=== PATIENT | female | born 1955 | race Caucasian/White ===

== ENCOUNTER 2017-08-23 16:19 | Observation (INO) ==
[2017-08-23] MEDS ORDERED: Aspirin 81 MG TAB.CHEW PO ONE (16:56)
--- NOTE | 2017-08-23 17:00 | Emergency Department Note ---
Disposition Clinical Impression: Chest pain Qualifiers: Chest pain type: unspecified Qualified Code(s): R07.9 - Chest pain, unspecified Disposition: Admitted As Inpatient Condition: Fair Forms: ED Satisfaction Letter, Work/School Release Time of Disposition: 18:22 Chest Pain HPI - General Chief Complaint: ED General Medical Stated Complaint: Left side pain and pressure Source: patient Limitations: no limitations Vital Signs Reviewed: Yes Nursing Notes Reviewed: Yes - History of Present Illness HPI Narrative: 61-year-old female past medical history of hypertension, myocardial infarction in her mother at the age of 63 presented to the emergency department with left- sided pain radiating up into the left side of her neck that is associated with shortness of breath. Patient denies ever having history of migraine infarction. Patient denies any nausea, diaphoresis. Patient denies any hemoptysis, unilateral leg swelling, recent travel, history of DVT, use of estrogen. Patient denies any cough, fever. Patient denies dysuria, hematuria. Severity scale (1-10): 8 - Related Data Allergies Allergy/AdvReac Type Severity Reaction Status Date / Time Penicillins [PCN] Allergy See Verified 08/23/17 16:26 Comments Sulfa (Sulfonamide Allergy See Verified 08/23/17 16:26 Antibiotics) Comments All systems ED: reviewed and negative except as stated. Review of Systems: As Per HPI Constitutional: Denies: fever Cardiovascular: Reports: chest pain Respiratory: Reports: dyspnea. Denies: cough Gastrointestinal: Denies: abdominal pain, nausea, vomiting Chest Pain PMH - Past Medical History Medical history: Reports: hypertension Psychiatric history: Reports: anxiety, depression - Social History Smoking Status: 2nd Hand Smoke Exposure Alcohol use: Reports: occasionally Drug use: Reports: none Physical Exam General: 7-year-old female who appears to be teary-eyed Head: autraumatic, EOMI, no conjuncitval pallor, no scleral icterus, Mouth: oral mucous membranes moist Neck: neck soft, trachea midline Chest:: Equal chest wall rise Lungs: Normal lungs sounds bilaterally, no wheezes, no respiratory distress Heart: normal heart sounds, normal rate and rhythm, Back: No CVA tenderness Abdomen: soft, non-tender, no rigidity, no guarding, no rebdound tenderness Lower Extremities: no pedal edema, calves non-tender Integumentary: Skin warm, dry, and intact Neuro: Alert Psych: normal affect, normal mood - General Limitations: no limitations General appearance: alert, in no apparent distress Course Vital Signs Temperature 98.2 F 08/23/17 16:21 Pulse Rate 102 08/23/17 16:21 Respiratory Rate 18 08/23/17 16:21 Blood Pressure 140/92 08/23/17 16:21 O2 Sat by Pulse Oximetry 96 08/23/17 16:21 Temperature 98.2 F 08/23/17 16:21 Pulse Rate 102 08/23/17 16:21 Respiratory Rate 18 08/23/17 16:21 Blood Pressure 140/92 08/23/17 16:21 O2 Sat by Pulse Oximetry 96 08/23/17 16:21 Oxygen Delivery Oxygen Delivery Room Air Chest Pain - MDM Narrative Medical decision making narrative: Vital Signs Temperature 98.2 F 08/23/17 16:21 Pulse Rate 102 08/23/17 16:21 Respiratory Rate 18 08/23/17 16:21 Blood Pressure 140/92 08/23/17 16:21 O2 Sat by Pulse Oximetry 96 08/23/17 16:21 Temperature 98.2 F 08/23/17 16:21 Pulse Rate 86 08/23/17 18:09 Respiratory Rate 14 08/23/17 18:09 Blood Pressure 123/84 08/23/17 18:09 O2 Sat by Pulse Oximetry 98 08/23/17 18:09 Oxygen Delivery Oxygen Delivery Room Air 61-year-old female presents to emergency department with concern of acute coronary syndrome. Electrocardiogram reveals nonspecific ST segment changes that are nonspecific. Chest x-ray reveals an elevated right hemidiaphragm academic a underlying phrenic nerve dysfunction. However, I do not think this is anything that is related to this patient's chest pain as her chest pain is on the left side.. Troponin was negative. Patient did have chest pain that responded to nitroglycerin. At this time, I discussed care decision-making with the patient regarding further admission to the hospital as she appeared to be very stressed upon arrival to the emergency department and she does have some concerning risk factors as she has hypertension and MIs in both her father and mother within [address] her current age[address] Dr[address] Peraza, the admitting hospitalist agreed to accept the patient for admission for chest pain observation and to further perform a delta troponin. I discussed the plan with the patient and family at bedside and they agreed with the plan. Patient was hemodynamically stable and not in any chest pain at time of admission. Chest X-Ray 08/23/17 16:27 IMPRESSION: No acute findings. Streaky basilar opacities most consistent with atelectasis. Elevated right hemidiaphragm could indicate underlying phrenic nerve dysfunction. Comparison with any prior chest radiographs would be helpful if available. Otherwise consider fluoroscopic sniff test if there is ongoing clinical concern. D/ / Nils Garcia / Nils Garcia Interpreting Provider: Nils Garcia - Lab Data Lab results reviewed: Yes I reviewed the patient's lab results. Result diagrams: 08/23/17 17:09 08/23/17 17:09 Lab Results 08/23/17 08/23/17 08/23/17 Range/Units 17:09 17:09 17:09 WBC 10.1 (4.3-11.1) K/mcL RBC 4.61 (3.82-4.97) M/mcL Hgb 13.8 (11.5-15.4) g/dL Hct 41.8 (35.3-44.9) % MCV 90.7 (83.0-100.0) fL MCH 29.9 (28.0-33.3) pg MCHC 33.0 (31.6-35.5) g/dL RDW 13.5 (11.5-14.5) % Plt Count 355 (140-400) K/mcL MPV 8.8 L (9.4-12.4) fL Immature Gran % 0.5 (0-4) % Seg Neutrophils % 60.8 % Lymphocytes % 28.4 % Monocytes % 8.2 % Eosinophils % 1.5 % Basophils % 0.6 % Neutrophils # 6.1 (1.6-8.9) K/mcL Lymphocytes # 2.9 (0.6-4.6) K/mcL Monocytes # 0.8 (0.0-1.3) K/mcL Eosinophils # 0.2 (0.0-0.6) K/mcL Basophils # 0.1 (0.0-0.2) K/mcL PT 10.9 (9.4-12.1) Seconds INR 1.0 APTT 33.7 (26.0-36.0) Seconds Sodium 140 (136-145) mEq/L Potassium 3.9 (3.5-4.5) mEq/L Chloride 105 (98-109) mEq/L Carbon Dioxide 27 (19-29) mEq/L BUN 9 (7-20) mg/dL Creatinine 0.77 (0.57-1.11) mg/dL Est GFR ( Amer) > 60 (> 60) Est GFR (Non-Af Amer) > 60 (> 60) BUN/Creatinine Ratio 12 (6-26) Glucose 125 H (70-99) mg/dL Calculated Osmolality 290 (280-300) Calcium 9.1 (8.6-10.8) mg/dL Troponin I (0-0.03) ng/mL B-Natriuretic Peptide (0-100) pg/mL 08/23/17 08/23/17 Range/Units 17:09 17:11 WBC (4.3-11.1) K/mcL RBC (3.82-4.97) M/mcL Hgb (11.5-15.4) g/dL Hct (35.3-44.9) % MCV (83.0-100.0) fL MCH (28.0-33.3) pg MCHC (31.6-35.5) g/dL RDW (11.5-14.5) % Plt Count (140-400) K/mcL MPV (9.4-12.4) fL Immature Gran % (0-4) % Seg Neutrophils % % Lymphocytes % % Monocytes % % Eosinophils % % Basophils % % Neutrophils # (1.6-8.9) K/mcL Lymphocytes # (0.6-4.6) K/mcL Monocytes # (0.0-1.3) K/mcL Eosinophils # (0.0-0.6) K/mcL Basophils # (0.0-0.2) K/mcL PT (9.4-12.1) Seconds INR APTT (26.0-36.0) Seconds Sodium (136-145) mEq/L Potassium (3.5-4.5) mEq/L Chloride (98-109) mEq/L Carbon Dioxide (19-29) mEq/L BUN (7-20) mg/dL Creatinine (0.57-1.11) mg/dL Est GFR ( Amer) (> 60) Est GFR (Non-Af Amer) (> 60) BUN/Creatinine Ratio (6-26) Glucose (70-99) mg/dL Calculated Osmolality (280-300) Calcium (8.6-10.8) mg/dL Troponin I 0.00 (0-0.03) ng/mL B-Natriuretic Peptide 14 (0-100) pg/mL - EKG Data EKG attestation: Yes I reviewed and interpreted this EKG. EKG results narrative: 16:33 Ventricular rate 82 bpm, PA interval 153 ms, QRS duration 91 ms, QT 378 ms, QTC 470 ms, left axis deviation. Sinus rhythm with a ventricular rate of 82 bpm. There is mild T-wave flattening in lead aVL that is nonspecific in nature. This study was done and a comparison with one performed on 04/07/2005. Heart Score - Score History: Moderately Suspicious EKG: Non Specific repolarisation Disturbance Age: 45-65 Risk Factors: 1-2 risk factors Troponin: Less than normal limit HEART Score Total: 4
[2017-08-23 17:19] LABS: Basophils # 0.1 K/mcL (0.0-0.2); Basophils % 0.6 %; Eosinophils # 0.2 K/mcL (0.0-0.6); Eosinophils % 1.5 %; Hematocrit 41.8 % (35.3-44.9); Hemoglobin 13.8 g/dL (11.5-15.4); Immature Granulocytes % 0.5 % (0-4); Lymphocytes # 2.9 K/mcL (0.6-4.6); Lymphocytes % 28.4 %; Mean Corpuscular Hemoglobin 29.9 pg (28.0-33.3); Mean Corpuscular Volume 90.7 fL (83.0-100.0); Mean Platelet Volume 8.8 fL (9.4-12.4); Monocytes # 0.8 K/mcL (0.0-1.3); Monocytes % 8.2 %; Neutrophils # 6.1 K/mcL (1.6-8.9); Platelet Count 355 K/mcL (140-400); Red Blood Count 4.61 M/mcL (3.82-4.97); Red Cell Distribution Width 13.5 % (11.5-14.5); Segmented Neutrophils % 60.8 %
[2017-08-23 17:23] LABS: Prothrombin Time 10.9 Seconds (9.4-12.1)
[2017-08-23 17:25] LABS: Activated Partial Thrombo Time 33.7 Seconds (26.0-36.0)
[2017-08-23 17:30] LABS: BUN/Creatinine Ratio 12 (6-26); Blood Urea Nitrogen 9 mg/dL (7-20); Calcium 9.1 mg/dL (8.6-10.8); Carbon Dioxide 27 mEq/L (19-29); Chloride 105 mEq/L (98-109); Glucose 125 mg/dL (70-99); Osmolality,Calculated 290 (280-300); Potassium 3.9 mEq/L (3.5-4.5); Sodium 140 mEq/L (136-145); eGFR For African Americans > 60 (> 60); eGFR For Non-African Americans > 60 (> 60)
[2017-08-23] MEDS ORDERED: Nitroglycerin 0.4 MG TAB.SUBL SL PRN (17:42)
[2017-08-23] MEDS ORDERED: 0.9 % Sodium Chloride 1,000 ML IVC ONE (17:42)
--- NOTE | 2017-08-23 18:46 | Emergency Department Note ---
START Narrative - START START: I examined this patient and my medical decision-making was reviewed with the Resident Physician. I agree with the documented findings, disposition and treatment plan as described except to the extent set forth below. CP with HEART score of 3. Statistically low risk with some concerning factors. SDM by Dr. Rodriguez, offered admission, pt wants to stay.
[2017-08-23] MEDS ORDERED: Acetaminophen 325 MG TABLET PO PRN (19:59)
[2017-08-23] MEDS ORDERED: *HR* HYDROcodone/Acet 5/325 mg TABLET PO PRN (19:59)
[2017-08-23] MEDS ORDERED: Naloxone 0.4 MG/ML INJ IVP PRN (19:59)
[2017-08-23] MEDS ORDERED: *HR* Morphine 2 MG/ML SYRINGE IVP PRN (19:59)
--- NOTE | 2017-08-23 21:22 | Internal Med History&Physical ---
Date of Encounter: 08/23/17 Time of Encounter: 20:50 Assessment and Plan (1) Chest pain Current visit: Yes Status: Acute R/O ACS CXR shows possible R phrenic nerve dysfunction, patient has no respirator symptoms relating to this We will work up for ACS EKG unremarkable troponin negative Cycle trops continue ASA Check A1C and Lipid panel Stress test and ECHO a.m May consider sniff test if cardiac work up is negative Qualifiers: Chest pain type: unspecified Qualified Code(s): R07.9 - Chest pain, unspecified (2) HTN (hypertension) Current visit: Yes Status: Chronic Controlled, continue home meds Qualifiers: Hypertension type: unspecified Qualified Code(s): I10 - Essential (primary ) hypertension (3) Obesity (BMI 30-39.9) Current visit: Yes Status: Chronic Lifestyle modification Internal Medicine - H&P: HPI Chief complaint: Chest pain Admitted From: Home Plans for Post Hospital Care: Home History of present illness: Ms. Sheridan is a 61 year old female with Obesity and HTN, depression, presented with L sided , chest pain, said to be sharp and radiating to her jaw and neck, associated with shortness of breath. Pain started while she was driving and is exacerbated by deep breaths. She denies diaphoresis, nausea, vomiting, some associated shortness of breath because of the pleuritic nature of the chest pain. At time of review, her chest pain was 2-3/10. Chest pain was relieved by NTG given in the ER. She is a non-smoker, family hx significant for CAD in her mother at the age of 62. She denies fever, chills, cough or respiratory symptoms No GI// symptoms She is not a known DM, she is compliant with her medications She denies any other complains She is recently menopausal and reports increased tiredness and decreased exercise tolerance ROS is otherwise unremarkable Labs in ER unremarkable, Initial EKG is NSR with no St segment changes. Mild hyperglycemia on chem. Past Med Surg Social Fam HX - Past Medical History Medical history: hypertension Psychiatric history: anxiety, depression - Past Surgical History Surgical History: cholecystectomy - Social History Smoking Status: 2nd Hand Smoke Exposure Smokeless Tobacco Status: No Alcohol use: occasionally Drug use: none - Family History Mother Living Status: Hx Family Cardiac Disorders: Yes (CAD) Father Living Status: Hx Family Cardiac Disorders: Yes ([place]) Hx Family Cancer: Yes (Lung Cancer) Internal Medicine - H&P: Meds FLUoxetine HCl [Prozac] 20 mg PO DAILY 08/23/17 [History] Lisinopril [Zestril] 20 mg PO DAILY 08/23/17 [History] 3 Allergy/AdvReac Type Severity Reaction Status Date / Time Penicillins [PCN] Allergy See Verified 08/23/17 16:26 Comments Sulfa (Sulfonamide Allergy See Verified 08/23/17 16:26 Antibiotics) Comments All Systems PM: A 10-system review of systems was performed and is negative for pertinent findings except as documented above in the HPI. - Constitutional Constitutional: as per HPI - EENT Eyes: as per HPI Ears: as per HPI Nose, mouth and throat: as per HPI - Cardiovascular Cardiovascular ROS IM: as per HPI - Respiratory Respiratory: as per HPI - Gastrointestinal Gastrointestinal: as per HPI - Genitourinary Genitourinary: as per HPI - Musculoskeletal Musculoskeletal ROS IM: as per HPI - Integumentary Integumentary IM: as per HPI - Neurological Neurological ROS: as per HPI - Hematologic/Lymphatic Hematologic/Lymphatic: as per HPI - Constitutional Vitals: Temp Pulse Resp BP Pulse Ox 98.3 F 60 17 111/73 93 08/23/17 20:37 08/23/17 20:37 08/23/17 20:37 08/23/17 20:37 08/23/17 20:37 General appearance: Present: A&O X 3, pleasant, obese - Head Head exam: Present: atraumatic, normocephalic - Eye Eye exam: Present: PERRL, conjuntiva pink, sclera anicteric Pupils: Present: PERRL - Neck Neck exam general surgery: Present: supple, trachea midline. Absent: lymphadenopathy - Respiratory Respiratory exam: Present: CTAB. Absent: accessory muscle use, rales, rhonchi, wheezes Additional comments: No chest wall tenderness - Cardiovascular Cardiovascular exam: Present: RRR, +S1, +S2. Absent: diastolic murmur, gallop, rubs, systolic murmur - GI/Abdominal GI/Abdominal exam: Present: normal bowel sounds, soft, no peritoneal signs. Absent: distended, tenderness - Extremities Exam Extremities exam: Present: warm, radial pulses palpable and symmetrical. Absent : calf tenderness, cyanotic, pedal edema - Neurological Exam Neurological exam: Present: alert, CN II-XII intact, normal gait, oriented X3, no focal deficits. Absent: pronater drift, facial droop, speech deficit - Skin Skin exam: Present: dry, intact Internal Med - H&P Results - Labs CBC & Chem 7: 08/23/17 17:09 08/23/17 17:09
[2017-08-24 00:21] LABS: Chol/HDL Ratio 4.1 (0-4.9)
[2017-08-24 00:35] LABS: Hemoglobin A1C 5.5 %
[2017-08-24] MEDS ORDERED: Regadenoson 0.4 MG/5 ML SYRINGE IVP ONE (08:42)
[2017-08-24] MEDS ORDERED: FLUoxetine 20 MG CAPSULE PO SCH (09:00)
[2017-08-24] MEDS ORDERED: Aspirin Enteric Coated 81 MG Tablet PO SCH (09:00)
[2017-08-24] MEDS ORDERED: Lisinopril 20 MG TABLET PO SCH (09:00)
--- NOTE | 2017-08-24 13:09 | Electrocardiograph Report ---
[place] [address] Test Date: 2017-08-23 Pat Name: Zakiya Sheridan Department: 104 Room: [facility] Gender: F Elder Counselor: [id number] : 1955 Requested By: Margarito Alvarado Order Number: [id number] Reading MD: Raphael Shaw MD Measurements Intervals [place] Rate: 82 P: 55 MI: 153 QRS: -26 QRSD: 91 T: 51 QT: 378 QTc: 417 Interpretive Statements SINUS RHYTHM BORDERLINE LEFT AXIS DEVIATION Poor R wave progression Electronically Signed On 08-24-2017 13:07:58 EST by Raphael Shaw MD
--- NOTE | 2017-08-24 13:49 | Discharge Summary ---
Date of Encounter: 08/24/17 Time of Encounter: 13:48 - Discharge Diagnosis (1) Chest pain Priority: Primary Status: Acute Qualifiers: Chest pain type: precordial pain Qualified Code(s): R07.2 - Precordial pain (2) HTN (hypertension) Priority: Secondary Status: Chronic Qualifiers: Hypertension type: essential hypertension Qualified Code(s): I10 - Essential (primary) hypertension (3) Obesity (BMI 30-39.9) Priority: Secondary Status: Chronic - Discharge Medications Home Medications: FLUoxetine HCl [Prozac] 20 mg PO DAILY 08/23/17 [History] Lisinopril [Zestril] 20 mg PO DAILY 08/23/17 [History] Allergies/Adverse Reactions: 3 Allergy/AdvReac Type Severity Reaction Status Date / Time Penicillins [PCN] Allergy See Verified 08/23/17 16:26 Comments Sulfa (Sulfonamide Allergy See Verified 08/23/17 16:26 Antibiotics) Comments Procedures/tests Complete & Pending: Procedures Performed prior 72 hours Category Date Time Status NM sonia perf SPECT multi [NM] Routine Exams 08/23/17 19:58 Taken EV echocardiogram Routine Y 08/24/17 21:39 Completed SP pharm nuclear stress Routine Y 08/24/17 07:15 Completed Date of admission: 08/23/17 18:09 Primary care physician: Jaquelin Pinto MD - Patient Status Disposition: Home, Self-Care Condition: Fair - Discharge Instructions Instructions: Chest Pain (DC), Chronic Hypertension (DC) Follow Up With: Jaquelin Pinto MD [Primary Care Provider] - Hospital course: Ms. Sheridan is a 61 year old female with past medical history significant for hypertension and obesity who presented to the hospital for evaluation of sudden onset left-sided chest pain, sharp, worse with deep breaths and cough, radiating to the left side of the neck and associated with shortness of breath. Her initial workup was negative. She was placed in observation. Serial troponins were negative, echocardiogram showed normal ejection fraction and diastolic dysfunction. Stress test was negative. The patient is chest pain- free currently. She will be discharged home with close follow-up with primary care physician. - Time Spent with Patient Total time spent providing and/or coordinating discharge services: - Constitutional Vitals: Temp Pulse Resp BP Pulse Ox 98.1 F 70 16 109/73 95 08/24/17 11:05 08/24/17 11:05 08/24/17 11:05 08/24/17 11:05 08/24/17 11:05 General appearance: Present: A&O X 3, pleasant, obese - Respiratory Respiratory exam: Present: CTAB. Absent: accessory muscle use, rales, rhonchi, wheezes - Cardiovascular Cardiovascular exam: Present: RRR, +S1, +S2. Absent: diastolic murmur, gallop, rubs, systolic murmur - GI/Abdominal GI/Abdominal exam: Present: normal bowel sounds, soft, no peritoneal signs. Absent: distended, tenderness
[2017-08-24 14:55] VITALS: BP 114/71
--- NOTE | 2017-08-25 17:47 | Electrocardiograph Report ---
[address] [place] [address] Test Date: 2017-08-24 Pat Name: Zakiya Sheridan Department: 113 Room: 3B Gender: F Mac Artist: : 1955 Requested By: Raffi Solorzano Order Number: [id number] Reading MD: Raphael Shaw MD Measurements Intervals [place] Rate: 54 P: 42 VA: 161 QRS: -12 QRSD: 88 T: 13 QT: 463 QTc: 450 Interpretive Statements SINUS BRADYCARDIA Electronically Signed On 08-25-2017 17:46:01 EST by Raphael Shaw MD
== END 2017-08-24 16:19 | disposition home or self-care (01) ==
LOC: 3BNU 16:19 → EMEROO 16:19 → SUATTDRO 18:09 → 3BNU 19:29
PROVIDERS: ADMIT Internal Medicine; ATTEND Internal Medicine

== ENCOUNTER 2021-11-09 03:05 | Observation (INO) ==
[2021-11-09] MEDS ORDERED: Aspirin 325 MG TABLET PO ONE (03:33)
[2021-11-09] MEDS ORDERED: Isovue-370 500 ML BOTTLE IVP ONE (03:52)
[2021-11-09 04:00] LABS: Basophils # 0.1 K/mcL (0.0-0.2); Basophils % 0.7 %; Eosinophils # 0.1 K/mcL (0.0-0.6); Eosinophils % 1.6 %; Hematocrit 42.9 % (35.3-44.9); Hemoglobin 13.7 g/dL (11.5-15.4); Immature Granulocytes % 0.7 % (0-4); Lymphocytes # 2.5 K/mcL (0.6-4.6); Lymphocytes % 27.8 %; Mean Corpuscular HGB Conc 31.9 g/dL (31.6-35.5); Mean Corpuscular Hemoglobin 28.8 pg (28.0-33.3); Mean Corpuscular Volume 90.1 fL (83.0-100.0); Mean Platelet Volume 8.8 fL (9.4-12.4); Monocytes # 0.7 K/mcL (0.0-1.3); Monocytes % 7.5 %; Neutrophils # 5.4 K/mcL (1.6-8.9); Platelet Count 338 K/mcL (140-400); Red Blood Count 4.76 M/mcL (3.82-4.97); Red Cell Distribution Width 14.3 % (11.5-14.5); Segmented Neutrophils % 61.7 %; White Blood Count 8.8 K/mcL (4.3-11.1)
[2021-11-09 04:27] LABS: Alanine Aminotransferase 16 Units/L (7-52); Albumin/Globulin Ratio 1.4 (1.1-2.2); Alkaline Phosphatase 56 Units/L (34-104); Aspartate Amino Transferase 13 Units/L (13-39); BUN/Creatinine Ratio 17 (6-26); Bilirubin,Direct 0.1 mg/dL (0.0-0.2); Bilirubin,Indirect 0.5 mg/dL (0.0-1.0); Bilirubin,Total 0.6 mg/dL (0.3-1.0); Blood Urea Nitrogen 14 mg/dL (8-23); Calcium 8.9 mg/dL (8.6-10.3); Carbon Dioxide 28 mEq/L (23-29); Chloride 103 mEq/L (98-107); Globulin 2.8 g/dL (2.4-3.5); Glucose 114 mg/dL (70-105); Lipase 31 Units/L (11-82); Osmolality,Calculated 291 (280-300); Potassium 3.7 mEq/L (3.5-5.1); Sodium 140 mEq/L (136-145); Total Protein 6.8 g/dL (6.4-8.9); Troponin I < 0.03 ng/mL (< 0.04); eGFR For African Americans > 60 (> 60); eGFR For Non-African Americans > 60 (> 60)
[2021-11-09 04:31] LABS: Prothrombin Time 11.6 Seconds (9.4-12.1)
[2021-11-09 05:04] LABS: Adenovirus Not Detected (Not Detect); Bordetella Pertussis Not Detected (Not Detect); Chlamydophila pneumoniae Not Detected (Not Detect); Coronavirus 229E Not Detected (Not Detect); Coronavirus HKU1 Not Detected (Not Detect); Coronavirus NL63 Not Detected (Not Detect); Coronavirus OC43 Not Detected (Not Detect); Human Metapneumovirus Not Detected (Not Detect); Human Rhinovirus/Enterovirus Not Detected (Not Detect); Influenza A Subtype 2009 H1 Not Detected (Not Detect); Influenza B Not Detected (Not Detect); Mycoplasma pneumoniae Not Detected (Not Detect); Parainfluenza Virus 1 Not Detected (Not Detect); Parainfluenza Virus 2 Not Detected (Not Detect); Parainfluenza Virus 3 Not Detected (Not Detect); Parainfluenza Virus 4 Not Detected (Not Detect); Respiratory Syncytial Virus Not Detected (Not Detect); SARS-CoV-2 Not Detected (Not Detect)
[2021-11-09] MEDS ORDERED: Naloxone 0.4 MG/ML INJ IVP PRN (06:10)
[2021-11-09] MEDS ORDERED: Melatonin 3 MG TABLET PO PRN (06:15)
[2021-11-09] MEDS ORDERED: Perflutren Lipid Microsphere 1.3 ML in 0.9 % Sodium Chloride 8.7 ML IVP PRN (06:36)
[2021-11-09] MEDS: Aspirin 81 MG TAB.CHEW PO SCH ×2 (07:56→08:12)
[2021-11-09] MEDS: FLUoxetine 20 MG CAPSULE PO SCH ×2 (07:57→08:12)
[2021-11-09] MEDS: Cholecalciferol (D-3) 1,000 UNIT (25MCG) TABLET PO SCH (08:19)
[2021-11-09] MEDS ORDERED: FLUoxetine 20 MG CAPSULE PO SCH (09:00)
[2021-11-09] MEDS: Budesonide/Formoterol 160/4.5 1 PUFF INH IH SCH ×2 (10:34→20:14)
[2021-11-09] MEDS: Tiotropium 10 INH DOSE IH SCH (10:34)
[2021-11-09] MEDS: *HR* Heparin 5,000 UNIT/ML VIAL SQ SCH (17:58)
[2021-11-10] MEDS: *HR* Heparin 5,000 UNIT/ML VIAL SQ SCH (05:04)
[2021-11-10 06:39] LABS: Basophils # 0.1 K/mcL (0.0-0.2); Basophils % 0.6 %; Eosinophils # 0.1 K/mcL (0.0-0.6); Eosinophils % 1.7 %; Hematocrit 41.4 % (35.3-44.9); Hemoglobin 12.9 g/dL (11.5-15.4); Immature Granulocytes % 0.5 % (0-4); Lymphocytes # 2.4 K/mcL (0.6-4.6); Lymphocytes % 31.1 %; Mean Corpuscular HGB Conc 31.2 g/dL (31.6-35.5); Mean Corpuscular Hemoglobin 28.7 pg (28.0-33.3); Mean Corpuscular Volume 92.2 fL (83.0-100.0); Mean Platelet Volume 8.9 fL (9.4-12.4); Monocytes # 0.6 K/mcL (0.0-1.3); Monocytes % 7.6 %; Neutrophils # 4.5 K/mcL (1.6-8.9); Platelet Count 347 K/mcL (140-400); Red Blood Count 4.49 M/mcL (3.82-4.97); Red Cell Distribution Width 14.5 % (11.5-14.5); Segmented Neutrophils % 58.5 %; White Blood Count 7.7 K/mcL (4.3-11.1)
[2021-11-10 07:11] LABS: Alanine Aminotransferase 15 Units/L (7-52); Albumin 3.8 g/dL (3.5-5.7); Albumin/Globulin Ratio 1.5 (1.1-2.2); Alkaline Phosphatase 53 Units/L (34-104); Aspartate Amino Transferase 13 Units/L (13-39); BUN/Creatinine Ratio 16 (6-26); Bilirubin,Total 0.9 mg/dL (0.3-1.0); Blood Urea Nitrogen 12 mg/dL (8-23); Calcium 8.6 mg/dL (8.6-10.3); Carbon Dioxide 28 mEq/L (23-29); Chloride 103 mEq/L (98-107); Globulin 2.5 g/dL (2.4-3.5); Glucose 112 mg/dL (70-105); Osmolality,Calculated 289 (280-300); Phosphorous 3.3 mg/dL (2.7-4.5); Sodium 139 mEq/L (136-145); Total Protein 6.3 g/dL (6.4-8.9); eGFR For African Americans > 60 (> 60); eGFR For Non-African Americans > 60 (> 60)
[2021-11-10 07:18] VITALS: BP 101/58; PULSE 59; TEMP 97.9; O2SAT 96
[2021-11-10] MEDS: Tiotropium 10 INH DOSE IH SCH (08:10)
[2021-11-10] MEDS: Budesonide/Formoterol 160/4.5 1 PUFF INH IH SCH (08:12)
[2021-11-10] MEDS: Aspirin 81 MG TAB.CHEW PO SCH (08:50)
[2021-11-10] MEDS: FLUoxetine 20 MG CAPSULE PO SCH (08:50)
[2021-11-10] MEDS: Cholecalciferol (D-3) 1,000 UNIT (25MCG) TABLET PO SCH (08:50)
== END 2021-11-10 10:36 | disposition home or self-care (01) ==
LOC: 3BNU 03:05 → EMEROOARM 03:05 → SUATTDRO 11:42 → 3BNU 12:43
PROVIDERS: ADMIT Student in an Organized Health Care Education/Training Program; ATTEND Family Medicine